=== PATIENT | female | born 1965 | race Caucasian/White ===

== ENCOUNTER → 2016-10-11 | Outpatient (CLI) | payer MEDICARE, OTHER ==
[~2016-10-11] MED LIST: COREG6.25 MG PO; CYMBALTA PO; ESTRACE2 MG PO; FIORINAL 50-321 EACH PO; LAMICTAL100 MG PO; LEVOTHYROXINE100 MCG PO; LISINOPRIL5 MG PO; MOVANTIK25 MG PO; OPANA ER10 M1 PO; PHENERGAN PO; PRILOSEC PO
--- NOTE | ~2016-10-11 | EKG ---
PATIENT: DELON MUJICA UNIT #: [id number] Ventricular Rate: 86 BPM Atrial Rate: 86 BPM P-R Interval: 162 ms QRS Duration: 92 ms Q-T Interval: 362 ms QTC Calculation(Bezet): 433 ms P [place]: 30 degrees Calculated R [place]: -13 degrees Calculated T Newport: 8 degrees Diagnosis Line: Normal sinus rhythm Diagnosis Line: Normal ECG Diagnosis Line: Diagnosis Line: Confirmed by JAI MELENDEZ MD ([id number]) on Diagnosis Line: 10/11/2016 4:22:50 PM INTERPRETING MD: JAX
--- NOTE | ~2016-10-11 | CR63 ---
[facility] A Service of [facility] & [facility] RADIOLOGY TEXT RESULTS PATIENT: DELON MUJICA LOCATION: [facility] : 67 UNIT #: [id number] AGE: [address]: Burton Serna MD SEX: F ORDER DR: [id number] [facility] [address] [place], [place] [address] [id number] O MR#: [id number] Acc #: [id number] NAME: DELON MUJICA : 1965 SEX: F STUDY DATE/TIME: 10/11/2016 8:32 UNIT: [facility] ROOM: STUDY DESCRIPTION: CR Chest 2 View Attending Physician: Burton Serna M.D. Referring Physician: Burton Serna M.D. Ordering Physician: Burton Serna M.D. Primary Care Physician: Jovan Gongora M.D. MEDICAL IMAGING REPORT This report is preliminary unless electronic signature is present EXAM Chest PA and lateral HISTORY Preop Lap-Band surgery. FINDINGS PA and lateral views are obtained. The cardiovascular configuration is normal and the lungs are clear. CONCLUSION Normal chest. Dictated by... Burton Jackson M.D. THIS IS AN ELECTRONICALLY VERIFIED REPORT Burton Jackson M.D. at 10/14/2016 5:12 PM ZAHRA/miranda TD: 10/11/2016 10:18 JOB #: [id number] MEDICAL IMAGING REPORT Page 1 of 1 COPY
--- NOTE | ~2016-10-11 | CR97 ---
[facility] A Service of [facility] & [facility] RADIOLOGY TEXT RESULTS PATIENT: DELON MUJICA LOCATION: [facility] : 67 UNIT #: [id number] AGE: [address]: Burton Serna MD SEX: F ORDER DR: [id number] [facility] [address]. [place], [place] [address] [id number] O MR#: [id number] Acc #: [id number] NAME: DELON MUJICA : 1965 SEX: F STUDY DATE/TIME: 10/11/2016 8:59 UNIT: [facility] ROOM: STUDY DESCRIPTION: CR Esophagram Attending Physician: Burton Serna M.D. Referring Physician: Burton Serna M.D. Ordering Physician: Burton Serna M.D. Primary Care Physician: Jovan Gongora M.D. MEDICAL IMAGING REPORT This report is preliminary unless electronic signature is present EXAM Barium esophagram. HISTORY Preop Lap-Band surgery. FINDINGS Under fluoroscopic control, barium and crystals were administered orally. Swallowing was normally. The esophagus is normal in course, caliber, mucosal pattern, and distensibility. CONCLUSION Normal Dictated by... Burton Jackson M.D. THIS IS AN ELECTRONICALLY VERIFIED REPORT Burton Jackson M.D. at 10/14/2016 5:11 PM ZAHRA/mya TD: 10/11/2016 12:33 JOB #: [id number] MEDICAL IMAGING REPORT Page 1 of 1 COPY
[2016-10-11 10:04] LABS: HEMATOCRIT 41.8 % (35.0-45.0); HEMOGLOBIN 13.4 gm/dL (12.0-16.0); MEAN CORPUSCULAR HEMOGLOBIN 27.6 PG (28-34); MEAN CORPUSCULAR HGB CONC 32.1 g/dL (30-36); MEAN PLATELET VOLUME 8.1 FL (6.5-11.5); RED BLOOD COUNT 4.87 X10e (3.90-5.30); RED CELL DISTRIBUTION WIDTH 13.7 % (11.0-15.5); WHITE BLOOD COUNT 12.2 X10e3 (4.0-10.5)
[2016-10-11 10:22] LABS: ALBUMIN SERUM 3.9 g/dL (3.5-5.0); BILIRUBIN,TOTAL 0.5 mg/dL (0.2-2.0); BUN/CREATININE RATIO 24.28; CALCIUM SERUM 9.7 mg/dL (8.4-10.2); CREATININE SERUM 0.7 mg/dL (0.6-1.4); POTASSIUM 4.5 mmol/L (3.5-5.1); PROTEIN TOTAL SERUM 7.5 g/dL (6.0-8.3)
== END | disposition home or self-care (01) ==
LOC: CRAD 08:15 → CAMB 10:00
PROVIDERS: Surgery
DX: Z01.818 Encounter for other preprocedural examination (principal)
CPT/HCPCS: 36415; 71020; 74220; 80053; 80061; 84443; 85027; 93005

== ENCOUNTER → 2016-10-23 | Day surgery (SDC) | payer MEDICARE, OTHER ==
--- NOTE | ~2016-10-23 | CR7 ---
[facility] A Service of [facility] & [facility] RADIOLOGY TEXT RESULTS PATIENT: DELON MUJICA LOCATION: [facility] : 67 UNIT #: [id number] AGE: [address]: Burton Serna MD SEX: F ORDER DR: [id number] [facility] [address] [facility]. [place], [place] [address] [id number] O MR#: [id number] Acc #: [id number] NAME: DELON MUJICA : 1965 SEX: F STUDY DATE/TIME: 10/23/2016 10:30 UNIT: [facility] ROOM: STUDY DESCRIPTION: CR Abdomen Single AP View Attending Physician: Burton Serna M.D. Ordering Physician: Burton Serna M.D. Primary Care Physician: Primary Care Physician No MEDICAL IMAGING REPORT This report is preliminary unless electronic signature is present EXAM KUB HISTORY Post Lap-Band surgery this morning. TECHNIQUE Single AP view of the abdomen was obtained. FINDINGS Single view of the abdomen shows postoperative changes of Lap-Band surgery. The angle of the band with respect to the long axis of the spine is 45 degrees. The bowel gas pattern is normal. IMPRESSION Satisfactory postoperative appearance. STAT * RESULT Dictated by... Shravan Matute M.D. THIS IS AN ELECTRONICALLY VERIFIED REPORT Shravan Matute M.D. at 10/23/2016 1:27 PM SHEBA/miranda TD: 10/23/2016 11:17 JOB #: [id number] MEDICAL IMAGING REPORT Page 1 of 1 COPY
--- NOTE | ~2016-10-23 | OR ---
Unit #: [id number] #: [id number] Patient: DELON MUJICA [id number] [address] [address] [id number] O MR#: [id number] NAME: DELON MUJICA ROOM: Date of Procedure: 10/23/2016 Admission Date: 10/23/2016 Surgeon: Burton Serna M.D. : 1965 Attending Physician: Burton Serna M.D. Primary Care Physician: Primary Care Physician No OPERATIVE REPORT PREOPERATIVE DIAGNOSIS Chronic morbid obesity, body mass index of 39. POSTOPERATIVE DIAGNOSES 1. Chronic morbid obesity, body mass index of 39. 2. Paraesophageal hiatal hernia. PROCEDURES PERFORMED 1. Laparoscopic adjustable gastric band. 2. Laparoscopic paraesophageal hiatal hernia repair. DIGITAL MEDIA MANAGER Anthony Quintero M.D ANESTHESIA General endotracheal anesthesia. ESTIMATED BLOOD LOSS Minimal. IV FLUIDS 800 crystalloid. COMPLICATIONS None. INDICATIONS FOR PROCEDURE The patient is a 51-year-old with chronic morbid obesity. DESCRIPTION OF PROCEDURE The patient was taken to the operating room and placed in supine position. General anesthesia was induced. The abdomen was prepped and draped. A 3-cm incision was then made left of the midline. A 10-mm Visiport was then placed intraabdominal under direct vision. The abdomen was insufflated to 15 mmHg with CO2. The patient was then placed in a steep reversed Trendelenburg. General inspection of the abdomen revealed what appeared to be a paraesophageal hernia. This was identified with a defect at the diaphragm using anterior palpation with the instrument. We then made a small incision in the subxiphoid region. A Fritz liver retractor was then placed intraabdominal and used to retract the left lobe of the liver upward to further expose the paraesophageal hernia and GE junction. I then placed a 5-mm port in the right upper quadrant, a 10-mm Unit #: [id number] #: [id number] Patient: DELON MUJICA port in the left upper quadrant, and another 5-mm port in the left lower quadrant. The stomach was retracted medial and downward. Upon retracting the stomach, we took down the paraesophageal ligament, exposing the right and left deandre at the paraesophageal hernia. Any hernia sac was reduced. We then repaired the paraesophageal hernia using interrupted #0 Ethibond sutures in a [id number] type fashion. This formed a snug repair to the anterior esophagus. We then retracted the stomach medially and further exposed the angle of His using Bovie electrocautery. The stomach was then retracted laterally. We then took down the hepatogastric ligament with Bovie electrocautery. This exposed the right deandre. Using blunt dissection, I created a retrogastric tunnel from this point to the angle of His. The band was then placed intraabdominal through the 10-mm port site. This was then brought through the retrogastric tunnel in a pars flaccida technique. The band was then closed anteriorly to form a 20-mL to 25-mL anterior gastric pouch. The fundus was then secured to the anterior pouch to prevent movement around the stomach using two interrupted #0 Ethibond sutures. A third suture was then used as a gathering stitch from the lesser curve to the anterior stomach, gathering and imbricating the remaining fundus of the stomach. The tubing was then brought out through the midline 10-mm port site. All ports and the Fritz liver retractor were removed under direct vision with no evidence of abdominal hemorrhage. A polypropylene mesh was then secured to the posterior face of the laparoscopic band port. This was secured using #0 Ethibond suture. This was then cut to shape. The port was then connected to the tubing and placed into a subcutaneous pocket just anterior to the rectus sheath. Its position was then confirmed. All tubing was then placed intraabdominal. The wounds were then closed with interrupted 4-0 Vicryl. The patient tolerated the procedure well and was sent to the recovery room in good condition. Dictated by... Edouard Zeng/antonia TD: 10/23/2016 16:18 JOB #: [id number] OPERATIVE REPORT Page 1 of 1 X Burton Serna MD X PROCEDURE OPERATIVE NOTE
[2016-10-23 08:03] LABS: BASOPHIL# 0.1 X10e3 (0-0.3); BASOPHIL% 0.6 % (0-2.5); EOSINOPHIL# 0.3 X10e3 (0-0.7); HEMATOCRIT 39.2 % (35.0-45.0); HEMOGLOBIN 12.7 gm/dL (12.0-16.0); LYMPHOCYTE# 4.2 X10e3 (1.0-3.5); LYMPHOCYTE% 40.2 % (17.0-45.0); MEAN CELL VOLUME 85.9 FL (83-96); MEAN CORPUSCULAR HEMOGLOBIN 27.9 PG (28-34); MEAN CORPUSCULAR HGB CONC 32.4 g/dL (30-36); MEAN PLATELET VOLUME 7.7 FL (6.5-11.5); MONOCYTE# 0.9 X10e3 (0-1.0); MONOCYTE% 8.8 % (3.0-12.0); NEUTROPHIL% 47.4 % (40-75); PLATELET COUNT 310 X10e3 (140-420); RED BLOOD COUNT 4.56 X10e (3.90-5.30); RED CELL DISTRIBUTION WIDTH 13.4 % (11.0-15.5); WHITE BLOOD COUNT 10.5 X10e3 (4.0-10.5)
[2016-10-23 08:05] LABS: DIFF IND NO
== END | disposition home or self-care (01) ==
LOC: CSUR 10-16 11:00
PROVIDERS: Surgery
DX: E66.01 Morbid (severe) obesity due to excess calories (principal); K44.9 Diaphragmatic hernia without obstruction or gangrene; E11.9 Type 2 diabetes mellitus without complications; I10 Essential (primary) hypertension; G89.29 Other chronic pain; E78.00 Pure hypercholesterolemia, unspecified; G43.909 Migraine, unspecified, not intractable, without status migrainosus; M06.9 Rheumatoid arthritis, unspecified; G47.30 Sleep apnea, unspecified; F32.9 Major depressive disorder, single episode, unspecified; K21.9 Gastro-esophageal reflux disease without esophagitis; E03.9 Hypothyroidism, unspecified; Z87.891 Personal history of nicotine dependence; Z80.0 Family history of malignant neoplasm of digestive organs; Z68.39 Body mass index [BMI] 39.0-39.9, adult; Z88.1 Allergy status to other antibiotic agents; Z88.8 Allergy status to other drugs, medicaments and biological substances; Z79.899 Other long term (current) drug therapy; Z90.710 Acquired absence of both cervix and uterus; Z98.51 Tubal ligation status; Z98.890 Other specified postprocedural states
CPT/HCPCS: 74000; 82947; 85025; C1781; J0330; J0690; J1650; J1885; J2250; J2405; J2710; J3010